=== PATIENT | female | born 1980 | race African-American/Black ===

== ENCOUNTER 2019-02-16 08:42 | Emergency (ER) | payer BC ==
[~2019-02-16] VITALS: Ht 177.8 cm; Wt 81.6 kg
--- NOTE | 2019-02-16 09:01 | NUR ---
Dr Castle at the bedside for MSE.
[2019-02-16 09:31] LABS: BASOPHILS # (AUTO) 0.1 K/uL (0.0-8.0); EOSINOPHILS # (AUTO) 0.1 K/uL (0.0-0.7); EOSINOPHILS % (AUTO) 0.9 % (0.0-7.0); HEMOGLOBIN 11.4 g/dL (10.9-14.3); LYMPHOCYTES # (AUTO) 1.4 K/uL (20.0-40.0); LYMPHOCYTES % (AUTO) 21.9 % (20.5-51.5); MEAN CORPUSCULAR HEMOGLOBIN 29.4 uug (24.7-32.8); MEAN CORPUSCULAR HGB CONC 33 g/dL (32.3-35.6); MEAN CORPUSCULAR VOLUME 90.3 fL (75.5-95.3); MONOCYTES # (AUTO) 0.5 K/uL (2.0-10.0); MONOCYTES % (AUTO) 7.2 % (0.0-11.0); NEUTROPHILS # (AUTO) 4.5 K/uL (1.8-8.9); PLATELET COUNT (AUTO) 299 K/uL (179-408); RED BLOOD CELL COUNT(AUTO) 3.87 MIL/uL (3.63-4.92); WHITE BLOOD COUNT (AUTO) 6.6 K/uL (3.8-11.8)
--- NOTE | 2019-02-16 10:01 | NUR ---
Female registered nurse ambulatory accompanied female patient for ([employer] tech).
--- NOTE | 2019-02-16 10:15 | NUR ---
Female auto service mechanic accompanied female patient for (dr Castle).
--- NOTE | 2019-02-16 10:45 | NUR ---
Dr townsend ordered RHogam for pt. Awaiting lab to provide.
--- NOTE | 2019-02-16 10:50 | NUR ---
RHOGAm IM shot given to Lt deltoid, lot #[id number], EXP .
[2019-02-16 11:00] VITALS: BP 122/70
== END 2019-02-16 11:03 | disposition home or self-care (01) ==
LOC: ER 08:42
DX: O03.9 Complete or unspecified spontaneous abortion without complication (principal)
CPT/HCPCS: 36415; 76856; 85025; 86850; 86900; 86901; A4663